=== PATIENT | female | born 1965 | race Two or more races ===

== ENCOUNTER 2025-04-17 09:54 | Emergency (ER) | payer OTHER ==
[~2025-04-17] VITALS: Ht 165.1 cm; Wt 61.2 kg
[2025-04-17] MEDS ORDERED: TENORMIN50 M1 PO (10:39)
[2025-04-17] MEDS ORDERED: PANTOPRAZOLE SODIUM 40 MG/VIAL VIAL IV SCH (10:57)
[2025-04-17] MEDS ORDERED: 0.9 % SODIUM CHLORIDE 1,000 ML IV ONE (11:00)
[2025-04-17 11:57] LABS: BASO % 0.4 % (0.1-1.2); EOS # 0.10 (0.04-0.54); EOS % 2.1 % (0.7-7.0); LYMPH # 1.33 (1.18-3.74); LYMPH % 27.3 % (19.3-53.1); MEAN PLATELET VOLUME 9.10 fl (9.4-12.4); MONO # 0.44 (0.24-0.82); MONO % 9.0 % (4.7-12.5); NEUT # 2.97 (1.56-6.13); NEUT % 61.0 % (34.0-71.1); RED CELL DISTRIBUTION WIDTH 13.1 % (11.6-14.4)
[2025-04-17 12:15] LABS: INR 1.04
[2025-04-17 12:24] LABS: ALT/SGPT 22.0 U/L (12-78); AST/SGOT 19.0 U/L (15-37); BILIRUBIN TOTAL 1.07 mg/dL (0.3-1.2); BUN CREA RATIO 13.0 (7.0-25.0); CREATININE SERUM 0.63 mg/dL (0.55-1.02); GFR 96.07; GLOBULINA 3.3 G/DL (2.4-3.5); GLUCOSE FASTING 98.0 mg/dL (65-100); OSMOLALITY SERUM 281.0 MOSM/KG (275-295)
[2025-04-17] MEDS ORDERED: PROTONIX40 MG PO (15:55)
== END 2025-04-17 16:45 | disposition home or self-care (01) ==
LOC: ER 09:54
PROVIDERS: General Practice
DX: K62.5 Hemorrhage of anus and rectum (principal); Z88.2 Allergy status to sulfonamides; Z88.6 Allergy status to analgesic agent; I10 Essential (primary) hypertension; K63.89 Other specified diseases of intestine
CPT/HCPCS: 36415; 74177; 96365; 96366; 99284; J3490; J7030; Q9965